=== PATIENT | female | born 1990 | race Caucasian/White ===

== ENCOUNTER → 2017-01-13 | Outpatient (CLI) | payer OTHER ==
[2017-01-13 19:57] LABS: THYROID STIMULATING HORMONE 0.482 uIu/ml (0.300-4.500)
== END | disposition home or self-care (01) ==
LOC: C.LABSPEC 13:58
PROVIDERS: ATTEND Family Medicine
DX: E03.9 Hypothyroidism, unspecified (principal)

== ENCOUNTER 2022-01-16 11:37 | Inpatient (IN) ==
[2022-01-16] MEDS ORDERED: OXYTOCIN 30 UNITS/500 ML BAG IV PRN (11:55)
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
[2022-01-16] MEDS: LACTATED RINGER'S 1,000 ML IV PRN ×2 (12:28→15:55)
[2022-01-16] MEDS ORDERED: fentaNYL citrate 100 MCG/2 ML VIAL ONE (12:38)
[2022-01-16] MEDS ORDERED: BUPIVACAINE 0.25% 30 ML VIAL ONE (12:38)
[2022-01-16] MEDS ORDERED: ePHEDrine sulfate 50 MG/ML AMP ONE (12:38)
[2022-01-16] MEDS ORDERED: SODIUM CHLORIDE 0.9% INJ 10 ML VIAL ONE (12:38)
[2022-01-16] MEDS ORDERED: fentaNYL 2MCG/ML ROPIVACAINE 1.25MG/ML 100 ML BAG EPI ONE (12:39)
[2022-01-16 12:41] LABS: Hematocrit (blood only) 36.4 % (37-47); Hemoglobin 12.5 g/dL (12.0-16.0); Mean Corpuscular Hemoglobin 31.8 pg (25-34); Mean Corpuscular Hgb Conc 34.3 g/dL (32-36); Mean Corpuscular Volume 92.6 fL (80-100); Mean Platelet Volume 10.9 fL (7.4-10.4); Platelet Count 258 K/uL (130-400); RDW Coefficient of Variation 13.1 % (11.5-14.5); Red Blood Count 3.93 M/uL (4.2-5.4); White Blood Count 19.65 K/uL (4.8-10.8)
[2022-01-16] MEDS ORDERED: NALOXONE HCL 1 MG in SODIUM CHLORIDE 0.9% 1000ML 1,000 ML IV PRN (12:58)
[2022-01-16] MEDS ORDERED: ePHEDrine sulfate 50 MG/ML AMP IV PRN (12:58)
[2022-01-16] MEDS ORDERED: NALBUPHINE HCL INJ 10 MG/ML AMP IV PRN (12:58)
[2022-01-16] MEDS ORDERED: NALOXONE HCL 0.4 MG/1 ML VIAL/CARP IV PRN (12:58)
[2022-01-16] MEDS ORDERED: fentaNYL 2MCG/ML ROPIVACAINE 1.25MG/ML 100 ML BAG EPI PRN (12:58)
[2022-01-16] MEDS ORDERED: diphenhydrAMINE 50 MG/ML VIAL IV PRN (12:58)
--- NOTE | 2022-01-16 13:00 | Anesthesiology Consultation ---
Date of Service January 16, 2022 Assessment & Plan (1) Encounter for pre-operative examination: Chart Review Chart Review: Patient NOT seen in Pre Admission Testing and Acceptable Risk for Labor Epidural Consults Requested none History Allergies Allergy/AdvReac Type Severity Reaction Status Date / Time Penicillins Allergy Mild Hives as a Verified 01/16/22 10:47 baby Medications Home Medications Medication Instructions Recorded Confirmed Last Taken bupropion HCl 100 mg tablet,12 hr 100 mg PO BID 06/25/21 01/16/22 01/16/22 10:30 sustained-release (Wellbutrin SR) cetirizine 10 mg capsule (Zyrtec) 10 mg PO DAILY 06/25/21 01/16/22 01/15/22 22:30 levothyroxine 112 mcg tablet 112 mcg PO DAILY #90 tab 07/12/21 01/16/22 01/16/22 07:00 Lactobacillus acidophilus 10 10,000 mmu cells PO DAILY 07/28/21 01/16/22 01/15/22 22:30 billion cell capsule (Probiotic) vit no.133-ferrous 1 tab PO DAILY 07/28/21 01/16/22 01/15/22 22:30 fumarate 28 mg-folic acid 800 mcg tablet () calcium 600 mg capsule 600 mg PO DAILY 01/16/22 01/16/22 01/15/22 22:30 Active Medications Generic Name Dose Route Start Last Admin Trade Name Freq PRN Reason Stop Dose Admin Lactated Ringer's 1,000 mls @ 125 mls/hr 01/16/22 11:55 01/16/22 12:28 Lr IV 01/18/22 11:54 999 mls/hr .Q8H PRN Administration L&D Protocol Protocol Past Medical History Medical History Cervical malignancy History of chicken pox Exercise / Class Metabolic Activity II 4-5 Yardwork/Stairs/Walk up hill Past Family History Family History Brother Heart valve disorder Denies family history of Ovarian cancer Prostate cancer Breast cancer Colorectal cancer Past Surgical History Surgical History H/O dilation and curettage 2014 H/O LEEP H/O nasal septoplasty 2003 History of rhinoplasty 2018 [place] teeth removed 2003 Past Anesthesia History No Hx of Anesthesia Complications and No Family Hx of Anesthesia Complications Social History Smoking Status: Never smoker Hx Alcohol Use: No Hx Substance Use: No Physical Exam Vital Signs Last Vital Signs Temp 38.0 C H 01/16/22 11:46 Pulse 109 H 01/16/22 13:20 Resp 22 01/16/22 11:46 BP 141/90 H 01/16/22 13:20 Pulse Ox 98 01/16/22 13:18 Testing Laboratory Results 01/16/22 12:23 01/16/22 12:23
[2022-01-16 13:01] LABS: Alanine Aminotransferase 10 U/L (7-52); Albumin Level 3.5 gm/dl (3.4-5.0); Alkaline Phosphatase 143 U/L (34-104); Anion Gap 11 (3-11); Aspartate Aminotransferase 12 U/L (13-39); BUN Creatinine Ratio 11.3 (10-20); Bilirubin Direct 0.1 mg/dl (0-0.2); Bilirubin,Total 0.9 mg/dl (0.2-1.0); Blood Urea Nitrogen 7 mg/dl (6-23); Calcium 9.7 mg/dl (8.5-10.1); Carbon Dioxide 20 mmol/L (21-32); Chloride 104 mmol/L (98-107); Est GFR (African American) 138.3 ml/min; Est GFR (Non-African American) 119.3 ml/min; Globulin 3.5 gm/dl (2.5-4.0); Glucose 92 mg/dl (70-99(Fasting)); Potassium 3.8 mmol/L (3.5-5.1); Sodium 135 mmol/L (136-145)
[2022-01-16] MEDS: cefOXitin 2,000 MG in DEXTROSE 5% 50 ML IV SCH ×2 (13:32→18:35)
--- NOTE | 2022-01-16 13:39 | Labor Progress Brief Note ---
Date of Service January 16, 2022 Patient now has epidural labs reviewed she does not have any signs of gestational hypertension and her blood pressures have improved her temperature elevation was 1 time however if there is a prolonged rupture of membrane going on it seems prudent to treat for potential chorioamnionitis On exam after epidural she is 5 cm however I feel a bulging bag no amniotic fluid is noted at this time so if she has a leak it would be a higher leak I discussed this with the patient regardless she has 5 cm antibiotics being given for possible cardio but also for unknown GBS status this was just drawn today. Once antibiotics are on board at some stage and may rupture membranes however like to give them time to get on board first. Assessment & Plan Admission and Anticipated Discharge Date Admission Date: January 16, 2022 Results & Data ([facility]) Vital Signs (Past 12 Hours) Vital Signs Temp Pulse Resp BP Pulse Ox 01/16/22 13:36 130/80 01/16/22 13:34 110 H 134/80 01/16/22 13:33 117 H 99 01/16/22 13:32 110 H 128/78 01/16/22 13:30 103 H 124/76 01/16/22 13:28 113 H 129/78 98 01/16/22 13:26 107 H 129/76 01/16/22 13:24 101 H 126/77 01/16/22 13:23 105 H 98 01/16/22 13:22 107 H 141/82 H 01/16/22 13:20 109 H 141/90 H 01/16/22 13:18 102 H 98 01/16/22 13:13 107 H 98 01/16/22 13:12 114 H 93 01/16/22 13:08 103 H 100 01/16/22 13:06 98 H 92 01/16/22 13:04 82 138/93 01/16/22 13:03 99 H 100 01/16/22 12:58 106 H 100 01/16/22 12:35 112 H 136/93 01/16/22 12:19 100 H 167/73 H 01/16/22 12:06 109 H 165/92 H 01/16/22 11:47 117 H 161/90 H 01/16/22 11:46 100.4 F H 22 Coding Level of Care Code None
--- NOTE | 2022-01-16 14:38 | Labor Progress Brief Note ---
Date of Service January 16, 2022 Update I did review whether cefoxitin was sufficient antibiotics I spoke with Dr. Araujo in the office and our pediatrics on-call and wondered if we should add anything additional to the cefoxitin as I am choosing this is treatment for chorioamnionitis although it is not standard GBS treatment. Discussed with Dr. Goel she feels that the baby likely will need antibiotics afterwards and this will be sufficient treatment in labor we decided not to add on any additional antibiotics Assessment & Plan Admission and Anticipated Discharge Date Admission Date: January 16, 2022 Results & Data ([facility]) Vital Signs (Past 12 Hours) Vital Signs Temp Pulse Resp BP Pulse Ox 01/16/22 14:33 96 H 124/65 100 01/16/22 14:28 97 H 100 01/16/22 14:23 115 H 94 01/16/22 14:18 132 H 144/73 H 56 L 01/16/22 14:13 122 H 94 01/16/22 14:12 117 H 85 L 01/16/22 14:08 110 H 100 01/16/22 14:07 108 H 90 01/16/22 14:03 107 H 122/78 100 01/16/22 13:58 112 H 143/83 H 100 01/16/22 13:53 118 H 125/79 92 01/16/22 13:51 118 H 91 01/16/22 13:48 104 H 100 01/16/22 13:47 111 H 20 122/75 01/16/22 13:43 107 H 99 01/16/22 13:42 109 H 118/73 01/16/22 13:38 137 H 88 L 01/16/22 13:36 104 H 130/80 01/16/22 13:34 110 H 134/80 01/16/22 13:33 117 H 99 01/16/22 13:32 110 H 128/78 01/16/22 13:30 103 H 124/76 01/16/22 13:28 113 H 129/78 98 01/16/22 13:26 107 H 129/76 01/16/22 13:24 101 H 126/77 01/16/22 13:23 105 H 98 01/16/22 13:22 107 H 141/82 H 01/16/22 13:20 109 H 141/90 H 01/16/22 13:18 102 H 98 01/16/22 13:13 107 H 98 01/16/22 13:12 114 H 93 01/16/22 13:08 103 H 100 01/16/22 13:06 98 H 92 01/16/22 13:04 82 138/93 01/16/22 13:03 99 H 100 01/16/22 13:00 99.9 F H 01/16/22 12:58 106 H 100 01/16/22 12:35 112 H 136/93 01/16/22 12:19 100 H 167/73 H 01/16/22 12:06 109 H 165/92 H 01/16/22 11:47 117 H 161/90 H 01/16/22 11:46 100.4 F H 22 Coding Level of Care Code None
--- NOTE | 2022-01-16 15:43 | Labor Progress Brief Note ---
Date of Service January 16, 2022 Patient has had some decelerations some of them post contraction did reassess the situation her cervix is 5 to 6 cm and the membranes are bulging intensely. Antibiotics are on board I decided we would do an AmniSure and interestingly enough the AmniSure is negative. At this stage with the decelerations and the fact that she is almost 6 I recommended rupture of membranes and she agrees membranes were ruptured for clear fluid albeit somewhat of a foul odor. My suspicion is 1 of 2 things have gone on she has either had polyhydramnios and which is led to some early dilation of the cervix in labor and that she has had transudation of bacteria through the membranes possibly resulting in chorioamnionitis I am aware there was a fair amount of fluid in the office on exam and it was nitrazine positive but nitrazine is many false positives so I am inclined more to believe that the patient has not been ruptured for 6 days. This was relayed to the patient I will relay to the pediatricians as well Regardless she has choreal and needed nidus and needs to be treated this such both during labor and after delivery. Clearly need to watch her tracing as well and make sure it does not worsen Assessment & Plan Admission and Anticipated Discharge Date Admission Date: January 16, 2022 Results & Data ([facility]) Vital Signs (Past 12 Hours) Vital Signs Temp Pulse Resp BP Pulse Ox 01/16/22 15:38 100 H 98 01/16/22 15:35 117 H 92 01/16/22 15:33 106 H 100 01/16/22 15:29 108 H 94 01/16/22 15:28 115 H 85 L 01/16/22 15:24 96 H 89 L 01/16/22 15:23 100 H 100 01/16/22 15:18 95 H 126/80 98 01/16/22 15:13 95 H 100 01/16/22 15:08 119 H 70 L 01/16/22 15:07 113 H 92 01/16/22 15:03 112 H 90 01/16/22 15:02 117 H 92 01/16/22 15:00 98.2 F 01/16/22 14:58 101 H 100 01/16/22 14:56 103 H 89 L 01/16/22 14:53 97 H 100 01/16/22 14:48 96 H 117/63 100 01/16/22 14:43 100 H 100 01/16/22 14:38 98 H 100 01/16/22 14:33 96 H 124/65 100 01/16/22 14:28 97 H 100 01/16/22 14:23 115 H 94 01/16/22 14:18 132 H 144/73 H 56 L 01/16/22 14:13 122 H 94 01/16/22 14:12 117 H 85 L 01/16/22 14:08 110 H 100 01/16/22 14:07 108 H 90 01/16/22 14:03 107 H 122/78 100 01/16/22 13:58 112 H 143/83 H 100 01/16/22 13:53 118 H 125/79 92 01/16/22 13:51 118 H 91 01/16/22 13:48 104 H 100 01/16/22 13:47 111 H 20 122/75 01/16/22 13:43 107 H 99 01/16/22 13:42 109 H 118/73 01/16/22 13:38 137 H 88 L 01/16/22 13:36 104 H 130/80 01/16/22 13:34 110 H 134/80 01/16/22 13:33 117 H 99 01/16/22 13:32 110 H 128/78 01/16/22 13:30 103 H 124/76 01/16/22 13:28 113 H 129/78 98 01/16/22 13:26 107 H 129/76 01/16/22 13:24 101 H 126/77 01/16/22 13:23 105 H 98 01/16/22 13:22 107 H 141/82 H 01/16/22 13:20 109 H 141/90 H 01/16/22 13:18 102 H 98 01/16/22 13:13 107 H 98 01/16/22 13:12 114 H 93 01/16/22 13:08 103 H 100 01/16/22 13:06 98 H 92 01/16/22 13:04 82 138/93 01/16/22 13:03 99 H 100 01/16/22 13:00 99.9 F H 01/16/22 12:58 106 H 100 01/16/22 12:35 112 H 136/93 01/16/22 12:19 100 H 167/73 H 01/16/22 12:06 109 H 165/92 H 01/16/22 11:47 117 H 161/90 H 01/16/22 11:46 100.4 F H 22 Coding Level of Care Code None
[2022-01-16] MEDS: CALCIUM CARBONATE 500 MG CHEWABLE TAB PO PRN ×2 (17:08→22:22)
[2022-01-16] MEDS ORDERED: ACETAMINOPHEN 325 MG TAB PO PRN (22:23)
--- NOTE | 2022-01-16 23:36 | Delivery Summary ---
Vaginal Delivery Summary Date of Service January 16, 2022 Vaginal Delivery Summary VAVD Vacuum-assisted vaginal delivery Clinical note the patient was started have chorion amnionitis and was pushing reasonably well however her heart rate continued to rise was into the 180s at this stage she had brought down to a +2 station and I offered vacuum assistance to shorten the second stage patient agreed discussed risks including risks of careful hematoma Bladder was drained vacuum was applied for a total of 1 contraction there was 1 pop-off she then delivered without vacuum after pushing for 2 more contractions delivering a baby in occiput anterior position small midline episiotomy was made as well to facilitate delivery mouth and then nares were suctioned there was no nuchal cord baby was delivered by gentle traction no excessive force live vigorous male infant cord clamped and cut cord gases obtained cord blood obtained placenta her removed with gentle traction IV Pitocin started small episiotomy repaired with 3-0 Vicryl sponge and instrument counts correct Estimated blood loss 200 mL There was a foul odor at the time of discharge consistent with cardio in the placenta We will plan on continue antibiotics for 24 hours afterwards [facility] Vaginal Delivery Charge Delivery Type Details: VAVD
[2022-01-17 00:04] LABS: Base Excess Cord Arterial Bld -1.9 mEq/L (-9-1.8); Base Excess Cord Venous Blood 0.7 mEq/L (-7.7-1.9); CO2 Cord Arterial Blood 58 mmHg (39.1-73.5); Cord Venous Blood HCO3 24 mmol/L (18.4-26.8); Cord Venous Blood PCO2 37 mmHg (30.4-57.2); Cord Venous Blood PO2 36 mmHg (14.1-43.3); Cord Venous Blood pH 7.44 (7.20-7.44); HCO3 Cord Arterial Blood 26 mmol/L (19.7-28.5); PO2 Cord Arterial Blood 20 mmHg (4.1-31.7); pH Cord Arterial Blood 7.27 (7.1-7.38)
[2022-01-17 00:07] LABS: Oxygen Sat Cord Arterial Blood < 60.0 % (<60)
[2022-01-17] MEDS ORDERED: BENZOCAINE 20% AER SPR 82.5 GM CAN EXT PRN (02:17)
[2022-01-17] MEDS ORDERED: OXYTOCIN 30 UNITS/500 ML BAG IV PRN (02:17)
[2022-01-17] MEDS ORDERED: HYDROCORTISONE ACETATE 25 MG SUPP PR PRN (02:17)
[2022-01-17] MEDS ORDERED: DIPHTHERIA/TETANUS/PERTUSSIS 0.5 ML SYR/VIAL IM ONE (02:17)
[2022-01-17] MEDS ORDERED: oxyCODONE/ACETAMINOPHEN 5mg/325mg TAB PO PRN (02:17)
[2022-01-17] MEDS ORDERED: bisacodyL 10 MG SUPP PR PRN (02:17)
[2022-01-17] MEDS ORDERED: ACETAMINOPHEN 325 MG TAB PO PRN (02:17)
[2022-01-17] MEDS: IBUPROFEN 600 MG TAB PO PRN ×4 (02:25→20:35)
[2022-01-17] MEDS: LEVOTHYROXINE SODIUM 112 MCG TABLET PO SCH (06:15)
[2022-01-17] MEDS: cefOXitin 2,000 MG in DEXTROSE 5% 50 ML IV SCH ×3 (06:20→13:50)
--- NOTE | 2022-01-17 06:49 | Obstetrical Progress Note ---
Date of Service <Phillip Gamboa DO - Last Filed: 01/17/22 07:20> January 17, 2022 Assessment & Plan <Phillip Gamboa DO - Last Filed: 01/17/22 07:20> (1) Encounter for care and examination after delivery: 31 yo post day 1 from vaginal delivery complicated by sepsis, doing well. -Continue routine post care. -vital signs reviewed and WNL. (Tmax 36.7 post delivery) -Blood type O+, GBS unknown, Rubella Immune. -Encourage ambulation, monitor and control pain with Motrin, tylenol PRN, resume regular diet, monitor lochia. -encourage breast feeding. -Patient feeling much better today. Suspect resolution of source of sepsis with products of conception removed. -Will stop antibiotics after 24 hours. <Kunal Nguyen MD, FACOG - Last Filed: 01/17/22 07:22> (1) Encounter for care and examination after delivery: Subjective <Phillip Sanchezpiotrmichaela - Last Filed: 01/17/22 07:20> Ambulation: ambulating normally Voiding: no voiding problems Passing Gas:: Yes Diet Tolerance:: regular diet Lochia:: Small Feeding Type:: breast feeding Current Pain Level(1-10): 0 Review of Systems Denies fever, chills, sweats Denies shortness of breath, difficulty breathing, chest pain, palpitations, chest pressure. Denies breast pain. Denies dysuria. Denies headache or changes in vision Physical Exam <Phillip Sanchezpiotrmichaela - Last Filed: 01/17/22 07:20> General: Alert, oriented. No acute distress. Cardiac: Regular rate and rhythm, no murmurs/rubs/gallops. Respiratory: Clear to auscultation bilaterally a/p, no wheezes/rales/rhonchi. No increased work of breathing. Symmetrical chest rise. No respiratory distress. Abdomen: Soft, nontender, nondistended. Bowel sounds present. Uterus: Uterine fundus firm, palpable 1 cm below umbilicus. Lower Extremities: No lower extremity edema or swelling. No deep calf pain. Deb's negative bilaterally Results & Data ([facility]) <Phillip Sanchezpiotrmichaela DO - Last Filed: 01/17/22 07:20> Vital Signs (Past 12 Hours) Vital Signs Temp Pulse Pulse Resp BP BP Pulse Ox 01/17/22 03:00 36.5 C 94 H 16 133/78 98 01/17/22 02:20 36.7 C 20 01/17/22 02:18 90 144/87 H 01/17/22 02:03 100 H 122/79 01/17/22 01:50 22 01/17/22 01:48 93 H 121/69 01/17/22 01:33 89 123/75 01/17/22 01:20 20 01/17/22 01:18 88 133/81 01/17/22 01:05 22 01/17/22 01:03 96 H 137/81 01/17/22 00:48 86 122/71 01/17/22 00:45 98 H 97 01/17/22 00:40 103 H 95 01/17/22 00:35 101 H 20 97 01/17/22 00:33 100 H 125/70 01/17/22 00:30 97 H 95 01/17/22 00:25 96 H 97 01/17/22 00:20 97 H 20 97 01/17/22 00:18 93 H 123/62 01/17/22 00:15 96 H 97 01/17/22 00:10 97 H 97 01/17/22 00:05 101 H 18 94 01/17/22 00:03 96 H 133/76 01/17/22 00:00 97 H 97 01/16/22 23:55 96 H 96 01/16/22 23:50 96 H 20 96 01/16/22 23:48 139 H 129/78 90 01/16/22 23:45 94 H 97 01/16/22 23:40 107 H 97 01/16/22 23:35 38.1 C H 110 H 20 96 01/16/22 23:33 106 H 137/80 01/16/22 23:30 105 H 93 01/16/22 23:25 104 H 94 01/16/22 23:24 102 H 94 01/16/22 23:20 106 H 95 01/16/22 23:18 108 H 134/85 01/16/22 23:15 152 H 94 01/16/22 23:11 122 H 94 01/16/22 23:10 130 H 95 01/16/22 23:05 106 H 99 01/16/22 23:03 110 H 130/86 01/16/22 23:00 135 H 99 01/16/22 22:55 112 H 96 01/16/22 22:50 128 H 95 01/16/22 22:48 127 H 162/70 H 01/16/22 22:45 110 H 92 01/16/22 22:39 108 H 95 01/16/22 22:38 104 H 94 01/16/22 22:34 105 H 137/81 95 01/16/22 22:29 113 H 96 01/16/22 22:28 113 H 94 01/16/22 22:24 111 H 94 01/16/22 22:19 105 H 95 01/16/22 22:18 107 H 145/76 H 01/16/22 22:16 117 H 94 01/16/22 22:14 105 H 96 01/16/22 22:09 121 H 86 L 01/16/22 22:04 122 H 97 01/16/22 22:03 106 H 163/84 H 01/16/22 22:01 113 H 87 L 01/16/22 21:59 38.1 C H 103 H 20 97 01/16/22 21:54 143 H 97 01/16/22 21:52 105 H 90 01/16/22 21:49 112 H 98 01/16/22 21:48 107 H 162/87 H 01/16/22 21:44 105 H 97 01/16/22 21:39 109 H 98 01/16/22 21:34 107 H 99 01/16/22 21:33 105 H 153/80 H 87 L 01/16/22 21:29 97 H 98 01/16/22 21:24 94 H 95 01/16/22 21:20 96 H 124/67 01/16/22 21:19 93 H 95 01/16/22 21:14 91 H 96 01/16/22 21:09 92 H 96 01/16/22 21:04 91 H 134/69 98 01/16/22 21:00 37.9 C H 18 01/16/22 20:59 90 98 01/16/22 20:57 100 H 91 01/16/22 20:54 92 H 96 01/16/22 20:49 87 97 05/11/22 20:48 88 133/76 01/16/22 20:44 92 H 100 01/16/22 20:39 96 H 89 L 01/16/22 20:34 102 H 133/90 79 L 01/16/22 20:33 111 H 94 01/16/22 20:29 90 97 01/16/22 20:24 87 97 01/16/22 20:19 88 97 01/16/22 20:18 86 137/68 01/16/22 20:14 94 H 99 01/16/22 20:09 90 99 01/16/22 20:04 104 H 142/88 H 98 01/16/22 20:00 93 H 92 01/16/22 19:59 97 H 100 01/16/22 19:54 91 H 100 01/16/22 19:50 95 H 90 01/16/22 19:49 99 H 143/91 H 99 01/16/22 19:44 91 H 96 01/16/22 19:39 89 97 01/16/22 19:34 89 132/83 95 01/16/22 19:29 90 98 01/16/22 19:24 86 99 01/16/22 19:19 92 H 99 01/16/22 19:18 88 145/85 H 01/16/22 19:14 86 98 01/16/22 19:11 105 H 91 01/16/22 19:09 93 H 99 01/16/22 19:05 91 H 93 01/16/22 19:04 96 H 135/82 93 01/16/22 19:00 38.1 C H 83 20 91 01/16/22 18:59 86 100 01/16/22 18:54 90 92 01/16/22 18:49 91 H 125/82 100 01/16/22 18:48 92 H 90 <Kunal Nguyen MD, FACOG - Last Filed: 01/17/22 07:22> Co-Signing Physician Notes Resident Physician Supervision Note: I was present with Dr. Gamboa during the history and exam. I discussed the case with the resident and agree with the findings and plan as documented in the note. Any exceptions or clarifications are listed here: [None] Documented By: Kunal Nguyen MD, FACOG Resident Activity Tracking <Phillip Gamboa DO - Last Filed: 01/17/22 07:20> Resident Involvement: Resident Care Provided Care Provided: OB Delivery
[2022-01-17 06:55] LABS: Hemoglobin 11.6 g/dL (12.0-16.0); Mean Corpuscular Hemoglobin 31.7 pg (25-34); Mean Corpuscular Hgb Conc 34.1 g/dL (32-36); Mean Corpuscular Volume 92.9 fL (80-100); Mean Platelet Volume 10.9 fL (7.4-10.4); Platelet Count 190 K/uL (130-400); RDW Coefficient of Variation 13.1 % (11.5-14.5); RDW Standard Deviation 44.5 fL (36.4-46.3); Red Blood Count 3.66 M/uL (4.2-5.4); White Blood Count 20.78 K/uL (4.8-10.8)
--- NOTE | 2022-01-17 08:59 | Anesthesia Procedure Note ---
Date of Service January 17, 2022 Anesthesia Post Epidural Note Vital Signs Vital Signs: Temp Pulse Resp BP Pulse Ox 97.5 F L 82 18 120/77 98 01/17/22 07:04 01/17/22 07:04 01/17/22 07:04 01/17/22 07:04 01/17/22 07:04 Pain Intensity Bilateral Abdomen: Pain Intensity: 4 Episiotomy/Laceration: Pain Intensity: 4 Notes Mental Status: alert / awake / arousable and participated in evaluation Nausea / Vomiting: adequately controlled Pain: adequately controlled Airway Patency, RR, SpO2: stable & adequate BP & HR: stable & adequate Hydration State: stable & adequate Neuraxial Anesthesia: was administered and sensory block is resolving Anesthetic Complications: no major complications apparent and Pt Satisfied with anesthetic care Epidural: Removed without complications and With tip intact
[2022-01-17] MEDS: CALCIUM 600MG + VIT D 400 IU TAB PO SCH (09:02)
[2022-01-17] MEDS: buPROPion SR 100 MG TABCR PO SCH ×2 (09:02→20:34)
[2022-01-17] MEDS: DOCUSATE SODIUM 100 MG CAP PO SCH ×2 (09:02→20:34)
[2022-01-17] MEDS: PRENATAL VITAMIN 1 TAB PO SCH (09:02)
[2022-01-17] MEDS: CETIRIZINE HCL 10 MG TABLET PO SCH (09:02)
[2022-01-17] MEDS ORDERED: bisacodyL 5 MG TABEC PO SCH (20:00)
[2022-01-18] MEDS: IBUPROFEN 600 MG TAB PO PRN ×3 (03:59→16:11)
--- NOTE | 2022-01-18 05:20 | Obstetrical Progress Note ---
Date of Service <Phillip Gamboa DO - Last Filed: 01/18/22 07:07> January 18, 2022 Assessment & Plan <Phillip Gamboa DO - Last Filed: 01/18/22 07:07> (1) Encounter for care and examination after delivery: 31 yo post day 2 from vaginal delivery complicated by chorioamnionitis, doing well. -Continue routine post care. -vital signs reviewed and WNL. (Tmax 36.7 post delivery) -Blood type O+, GBS unknown, Rubella Immune. -Encourage ambulation, monitor and control pain with Motrin, tylenol PRN, resume regular diet, monitor lochia. -encourage breast feeding. -Patient feeling much better post . -Received Cefoxitin for 24 hours. -Discussed discharge with patient, patient will follow up with Dr. Nguyen in 6 weeks. -Discharge pending peds, may be held here until tomorrow. <Nereida Araujo MD - Last Filed: 01/18/22 07:24> (1) Encounter for care and examination after delivery: Subjective <Phillip Gamboa - Last Filed: 01/18/22 07:07> Ambulation: ambulating normally Voiding: no voiding problems Passing Gas:: Yes Diet Tolerance:: regular diet Lochia:: Small Feeding Type:: breast feeding Current Pain Level(1-10): 0 Review of Systems Denies fever, chills, sweats Denies shortness of breath, difficulty breathing, chest pain, palpitations, chest pressure. Denies breast pain. Denies dysuria. Denies headache or changes in vision Physical Exam <Phillip Gamboa DO - Last Filed: 01/18/22 07:07> General: Alert, oriented. No acute distress. Cardiac: Regular rate and rhythm, no murmurs/rubs/gallops. Respiratory: Clear to auscultation bilaterally a/p, no wheezes/rales/rhonchi. No increased work of breathing. Symmetrical chest rise. No respiratory distress. Abdomen: Soft, nontender, nondistended. Bowel sounds present. Uterus: Uterine fundus firm, palpable 2 cm below umbilicus. Lower Extremities: No deep calf pain. Results & Data ([facility]) <Phillip Gamboa DO - Last Filed: 01/18/22 07:07> Vital Signs (Past 12 Hours) Vital Signs Temp Pulse Resp BP BP Pulse Ox 01/17/22 22:58 36.5 C 66 16 100/51 L 100 01/17/22 20:30 36.7 C 83 16 128/83 97 01/17/22 19:04 36.7 C 66 16 123/80 99 <Nereida Araujo MD - Last Filed: 01/18/22 07:24> Co-Signing Physician Notes Resident Physician Supervision Note: I interviewed and examined the patient. Discussed with Dr. Gamboa and agree with findings and plan as documented in the note. Any exceptions or clarifications are listed here: [ ] Documented By: Nereida Araujo MD, FACOG Resident Activity Tracking <Phillip Gamboa DO - Last Filed: 01/18/22 07:07> Resident Involvement: Resident Care Provided Care Provided: OB Delivery
[2022-01-18] MEDS: LEVOTHYROXINE SODIUM 112 MCG TABLET PO SCH (06:06)
[2022-01-18 07:08] LABS: Hematocrit (blood only) 33.5 % (37-47); Hemoglobin 11.1 g/dL (12.0-16.0)
[2022-01-18] MEDS: CETIRIZINE HCL 10 MG TABLET PO SCH (08:13)
[2022-01-18] MEDS: DOCUSATE SODIUM 100 MG CAP PO SCH (08:13)
[2022-01-18] MEDS: CALCIUM 600MG + VIT D 400 IU TAB PO SCH (08:13)
[2022-01-18] MEDS: buPROPion SR 100 MG TABCR PO SCH (08:13)
[2022-01-18] MEDS: PRENATAL VITAMIN 1 TAB PO SCH (08:13)
--- NOTE | 2022-01-21 07:50 | Discharge Summary ---
Date of Service January 21, 2022 Discharge Data Consultations 01/16/22 11:55 Consult Anesthesiology Stat Hospital Course (1) Encounter for care and examination after delivery: 31 yo post day 2 from vaginal delivery complicated by chorioamnionitis, doing well. -Continue routine post care. -vital signs reviewed and WNL. (Tmax 36.7 post delivery) -Blood type O+, GBS unknown, Rubella Immune. -Encourage ambulation, monitor and control pain with Motrin, tylenol PRN, resume regular diet, monitor lochia. -encourage breast feeding. -Patient feeling much better post . -Received Cefoxitin for 24 hours. -Discussed discharge with patient, patient will follow up with Dr. Nguyen in 6 weeks. -Discharge pending peds, may be held here until tomorrow. Coding Level of Care Code None Diagnoses Encounter for care and examination after delivery Z39.2
== END 2022-01-18 18:40 | disposition home or self-care (01) | DRG 805 ==
LOC: OPB 11:37 → 4S1 11:41 → 4E1 01-17 02:45

== ENCOUNTER 2023-10-27 05:18 | Inpatient (IN) ==
--- NOTE | 2023-10-23 10:42 | Anesthesiology Consultation ---
Date of Service October 23, 2023 Assessment & Plan (1) Encounter for pre-operative examination: Infectious disease screening: Per assessment on 10/23/23: No known infectious disease contacts or current infectious disease symptoms. No noted recent Covid positive test result. 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 History Surgery Operation Date: 10/27/23 07:30 Proposed Procedures p Section (Delivery of Baby Through Abdominal Incision) - Nereida Araujo MD Height/Weight Height: 5 ft 4 in Weight: 98.43 kg Allergies Allergy/AdvReac Type Severity Reaction Status Date / Time nickel Allergy Intermediate Rash Verified 10/23/23 10:01 Penicillins Allergy Mild Hives as a Verified 10/23/23 09:47 baby Medications Home Medications Medication Instructions Recorded Confirmed Last Taken cetirizine 10 mg capsule (Zyrtec) 10 mg PO DAILY 06/25/21 10/23/23 01/15/22 22:30 Lactobacillus acidophilus 10 10,000 mmu cells PO HS 07/28/21 10/23/23 01/15/22 22:30 billion cell capsule (Probiotic) vit no.133-ferrous 1 tab PO HS 07/28/21 10/23/23 01/15/22 22:30 fumarate 28 mg-folic acid 800 mcg tablet () calcium 600 mg capsule 600 mg PO DAILY 01/16/22 10/23/23 01/15/22 22:30 ferrous sulfate 1 dose PO HS 03/14/23 10/23/23 Unknown levothyroxine 112 mcg capsule 112 mcg PO QAM 03/14/23 10/23/23 Unknown magnesium 400 mg PO HS 03/14/23 10/23/23 Unknown progesterone micronized 200 mg 200 mg vaginal QPM 90 days #90 caps 05/13/23 10/23/23 Unknown capsule (Prometrium) famotidine 20 mg tablet 20 mg PO HS 10/23/23 10/23/23 Unknown Past Medical History Medical History Asthma Allergy induced/well controlled per patient, no inhalers 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" GERD (gastroesophageal reflux disease) -induced Sabas's disease History of chicken pox childhood History of COVID-19 08/2020 PROM (premature rupture of membranes) 1st Past Family History Family History Brother Heart valve disorder Denies family history of Ovarian cancer Prostate cancer Breast cancer Colorectal cancer Past Surgical History Surgical History H/O dilation and curettage 2014 H/O LEEP H/O nasal septoplasty 2003 History of rhinoplasty 2018 S/P cone biopsy of cervix cold knife cone of cervix 2012 for CIS [place] teeth removed 2002 Social History Smoking Status: Former smoker Do You Dip or Chew Tobacco: No Smoking End Date: Age 20s, "light use" Hx Alcohol Use: No Hx Substance Use: No substance use type: does not use
[2023-10-27] MEDS ORDERED: OXYTOCIN 30 UNITS/NSS 30 UNITS/500 ML BAG IV PRN ×2 (05:52→05:55)
[2023-10-27] MEDS ORDERED: LIDOCAINE 1% LOCAL 20 ML VIAL INFIL PRN (05:52)
--- NOTE | 2023-10-27 05:56 | History & Physical Report ---
Date of Service October 27, 2023 Assessment & Plan (1) Normal labor: Plan: IUP at 39 0/7 weeks who was to have primary LTCS for breech presentation who is now vertex by ultrasound and cervix exam and in early labor. she would like to stay for IOL now and as she is already 4 cms dilated may progress on her own with just AROM. pitocin augmentation if necessary. planning on epidural analgesia anticipate vaginal Admission and Anticipated Discharge Date Admission Date: October 27, 2023 History of Present Illness Primary Care Provider: Mg Henry DO Patient is a 33 yo EDC [birth year] who presents at 39 0/7 weeks for primary LTCS but has found to be vertex by ultrasound this morning. she originally planned on going home and waiting for labor to start, however she has been bernardo more regularly this morning and now wishes to stay for IOL. no bloody show or SPROM. complicated by prior late delivery and prior cervical cone biopsy. she has been on vaginal progesterone this . GBS-negative Allergies Allergy/AdvReac Type Severity Reaction Status Date / Time nickel Allergy Intermediate Rash Verified 10/27/23 05:55 Penicillins Allergy Mild Hives as a Verified 10/27/23 05:55 baby chlorhexidine Allergy Hives Verified 10/27/23 05:56 Home Medications Medication Instructions Recorded Confirmed Type cetirizine 10 mg capsule (Zyrtec) 10 mg PO DAILY 06/25/21 10/27/23 History Lactobacillus acidophilus 10 10,000 mmu cells PO HS 07/28/21 10/27/23 History billion cell capsule (Probiotic) vit no.133-ferrous 1 tab PO HS 07/28/21 10/27/23 History fumarate 28 mg-folic acid 800 mcg tablet () calcium 600 mg capsule 600 mg PO DAILY 01/16/22 10/27/23 History levothyroxine 112 mcg capsule 112 mcg PO QAM 03/14/23 10/27/23 History famotidine 20 mg tablet 20 mg PO HS 10/23/23 10/27/23 History ferrous sulfate 325 mg (65 mg 325 mg PO DAILY 10/27/23 10/27/23 History iron) tablet (Iron (ferrous sulfate)) magnesium 200 mg tablet 400 mg PO DAILY 10/27/23 10/27/23 History sertraline 100 mg tablet (Zoloft) 100 mg PO DAILY 10/27/23 10/27/23 History Patient History Medical History Asthma Allergy induced/well controlled per patient, no inhalers 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" GERD (gastroesophageal reflux disease) -induced Sabas's disease History of chicken pox childhood History of COVID-19 08/2020 PROM (premature rupture of membranes) 1st Surgical History H/O dilation and curettage 2014 H/O LEEP H/O nasal septoplasty 2002 History of rhinoplasty 2018 S/P cone biopsy of cervix cold knife cone of cervix 2012 for CIS [place] teeth removed 2002 Family History Brother Heart valve disorder Denies family history of Ovarian cancer Prostate cancer Breast cancer Colorectal cancer Social History Smoking Status: Former smoker Smoking End Date: Age 20s, "light use"; Second Hand Exposure: No; Do You Dip or Chew Tobacco: No; Tobacco Cessation Education Requested by Patient: No Hx Alcohol Use: No Hx Substance Use: No Preferred Language: [place] Communication Ability: Effective Visual Impairment: No Limitations Hearing Ability: Normal Video Production Specialist Required: No Beliefs That Will Affect Care: None marital status: Single marital status details: Darek Dubose [phone] Current Living Situation: Significant Other Current Living Situation Comment: lives with fiance, son, dogs, cat-fob changing litter current occupational status: employed current occupation: business process manager at [employer] Other Information That Helps Us Care for You: No Feels Safe at Home: Yes Safety Concerns: Feels Safe At This Time Assistive Devices: Contacts and Glasses Review of Systems All systems reviewed & are unremarkable except as noted in HPI & below Physical Exam Constitutional: WD/WN, vitals as above Psychiatric: A+Ox3, euthymic affect Genitourinary: OB Exam Abdomen: + vertex, + estimated weight (7-8 pounds) and + regular contractions (Q3-4 minutes mild) Manual OB Exam: + cervical dilation 4 cm, + cervical effacement 70% and + station (posterior) -2 OB Exam Monitor Tracing: + external FHT monitor used, + external uterine monitor used, + category I and + normal FHT variability Results & Data Vital Signs (Past 12 Hours) Vital Signs Pulse BP 10/27/23 05:33 75 132/80 Coding Level of Care Code None Diagnoses Normal labor O80; Z37.9
[2023-10-27] MEDS: LACTATED RINGER'S 1,000 ML IV PRN (06:08)
[2023-10-27] MEDS: LEVOTHYROXINE SODIUM 112 MCG TABLET PO SCH (06:18)
[2023-10-27 06:24] LABS: Hematocrit (blood only) 35.9 % (37.0-47.0); Hemoglobin 12.2 g/dl (12.0-16.0); Mean Corpuscular Hemoglobin 31.1 pg (25.0-34.0); Mean Corpuscular Volume 91.6 fL (80.0-100.0); Mean Platelet Volume 11.1 fL (9.4-12.4); Platelet Count 207 K/uL (130-400); RDW Coefficient of Variation 12.8 % (11.5-14.5); RDW Standard Deviation 42.7 fL (36.4-46.3); Red Blood Count 3.92 M/uL (4.20-5.40); White Blood Count 8.64 K/ul (4.8-10.8)
[2023-10-27] MEDS ORDERED: fentaNYL citrate PF 100 MCG/2 ML VIAL EPI STA (08:01)
[2023-10-27] MEDS ORDERED: LIDOCAINE 2% MPF LOCAL 5 ML VIAL EPI PRN (08:01)
[2023-10-27] MEDS ORDERED: diphenhydrAMINE 50 MG/ML VIAL IV PRN ×2 (08:01→13:26)
[2023-10-27] MEDS ORDERED: SODIUM CHLORIDE 0.9% PF INJ 10 ML VIAL EPI STA (08:01)
[2023-10-27] MEDS ORDERED: NALOXONE HCL 1 MG in SODIUM CHLORIDE 0.9% 1,000 ML IV PRN ×2 (08:01→13:26)
[2023-10-27] MEDS ORDERED: NALBUPHINE HCL 5 MG in SYRINGE 0 ML IV PRN ×2 (08:01→13:26)
[2023-10-27] MEDS ORDERED: BUPIVACAINE 0.25% PF 30 ML VIAL EPI PRN (08:01)
[2023-10-27] MEDS ORDERED: ePHEDrine sulfate 50 MG/ML AMP IV PRN ×2 (08:01→13:26)
[2023-10-27] MEDS ORDERED: SODIUM CHLORIDE 0.9% PF INJ 10 ML VIAL EPI PRN (08:01)
[2023-10-27] MEDS ORDERED: fentANYL 2 MCG/ML BUPIVacaine 0.125%-NSS 100ML BAG EPI PRN (08:01)
[2023-10-27] MEDS ORDERED: BUPIVACAINE 0.25% PF 30 ML VIAL EPI STA (08:01)
[2023-10-27] MEDS ORDERED: ONDANSETRON INJ 2 MG/ML 2 ML VIAL IV PRN (08:01)
[2023-10-27] MEDS ORDERED: NALOXONE HCL 0.4 MG/1 ML VIAL/CARP IV PRN ×2 (08:01→13:26)
[2023-10-27] MEDS ORDERED: ROPIVACAINE 0.5% PF 5 MG/ML 20 ML VIAL EPI PRN (08:01)
[2023-10-27] MEDS ORDERED: LIDOCAINE 2%/EPINEPHRINE 1:200,000 20 ML PF EPI STA (08:01)
[2023-10-27] MEDS ORDERED: fentaNYL citrate PF 100 MCG/2 ML VIAL EPI PRN (08:01)
--- NOTE | 2023-10-27 08:04 | Anesthesiology Consultation ---
Date of Service October 27, 2023 Assessment & Plan ASA ASA2 Proposed Anesthesia Anesthesia Type: General and Labor Epidural Risk / Benefits Reviewed With: PT / POA / Parent / Guardian, Accepts Plan and Informed Consent Obtained History Surgery Operation Date: 10/27/23 07:30 Proposed Procedures p Section (Delivery of Baby Through Abdominal Incision) - Nereida Araujo MD Height/Weight Height: 5 ft 4 in Weight: 98.43 kg Allergies Allergy/AdvReac Type Severity Reaction Status Date / Time nickel Allergy Intermediate Rash Verified 10/27/23 05:55 Penicillins Allergy Mild Hives as a Verified 10/27/23 05:55 baby chlorhexidine Allergy Hives Verified 10/27/23 05:56 Medications Home Medications Medication Instructions Recorded Confirmed Last Taken cetirizine 10 mg capsule (Zyrtec) 10 mg PO DAILY 06/25/21 10/27/23 10/26/23 Lactobacillus acidophilus 10 10,000 mmu cells PO HS 07/28/21 10/27/23 10/26/23 billion cell capsule (Probiotic) vit no.133-ferrous 1 tab PO HS 07/28/21 10/27/23 10/26/23 fumarate 28 mg-folic acid 800 mcg tablet () calcium 600 mg capsule 600 mg PO DAILY 01/16/22 10/27/23 10/26/23 levothyroxine 112 mcg capsule 112 mcg PO QAM 03/14/23 10/27/23 10/26/23 famotidine 20 mg tablet 20 mg PO HS 10/23/23 10/27/23 10/26/23 ferrous sulfate 325 mg (65 mg 325 mg PO DAILY 10/27/23 10/27/23 10/26/23 iron) tablet (Iron (ferrous sulfate)) magnesium 200 mg tablet 400 mg PO DAILY 10/27/23 10/27/23 10/26/23 sertraline 100 mg tablet (Zoloft) 100 mg PO DAILY 10/27/23 10/27/23 10/19/23 Active Medications Generic Name Dose Route Start Last Admin Trade Name Freq PRN Reason Stop Dose Admin Lactated Ringer's 1,000 mls @ 125 mls/hr 10/27/23 05:52 10/27/23 07:59 Lr IV 10/29/23 05:51 999 mls/hr .Q8H PRN Infusion L&D Protocol Protocol Levothyroxine Sodium 112 mcg 10/27/23 06:30 10/27/23 06:18 Levothyroxine Sodium 112 Mcg Tablet PO 11/26/23 06:29 [facility] Past Medical History Medical History Anxiety and depression Sabas's disease GERD (gastroesophageal reflux disease) -induced History of COVID-19 08/2020 Asthma Allergy induced/well controlled per patient, no inhalers PROM (premature rupture of membranes) 1st Cervical malignancy CIS 2012 > "resolved" History of chicken pox childhood Exercise / Class Metabolic Activity II 4-5 Yardwork/Stairs/Walk up hill Past Family History Family History Brother Heart valve disorder Denies family history of Ovarian cancer Prostate cancer Breast cancer Colorectal cancer Past Surgical History Surgical History H/O LEEP S/P cone biopsy of cervix cold knife cone of cervix 2012 for CIS [place] teeth removed 2002 H/O dilation and curettage 2014 H/O nasal septoplasty 2003 History of rhinoplasty 2018 Past Anesthesia History No Hx of Anesthesia Complications and No Family Hx of Anesthesia Complications History of PONV No Hx of PONV and No Hx of Motion Sickness Social History Smoking Status: Never smoker Do You Dip or Chew Tobacco: No Smoking End Date: Age 20s, "light use" Hx Alcohol Use: No Hx Substance Use: No substance use type: does not use Review of Systems denies fever/cough/ colds/ chest pain/ SOB/ MATTIE denies MATTIE Physical Exam Vital Signs Last Vital Signs Temp 36.6 C 10/27/23 07:05 Pulse 97 H 10/27/23 08:34 Resp 20 10/27/23 07:05 BP 151/89 H 10/27/23 08:33 Pulse Ox 99 10/27/23 08:34 ENMT Mouth: no TMJ abnormality and no dentition abnormality Thyromental Distance: > or= 3.5 Finger Breadths Mallampati Class: II Neck neck extension not limited Respiratory normal respiratory effort; no respiratory distress Auscultation: lungs clear to auscultation bilaterally Cardiovascular Rate/Rhythm: regular rate and regular rhythm Neurologic moves all extremities Psychiatric Orientation: alert and oriented x 3 Testing Laboratory Results 10/27/23 06:07 Blood Type O Positive 10/27/23 06:07 Antibody Screen NEGATIVE 10/27/23 06:07
--- NOTE | 2023-10-27 08:25 | Communication Note ---
Date of Service: October 27, 2023 Visited with patient, very pleased to be vertex and in labor / SROM! Planning epidural now. Will re-assess after comfortable. FHT has been reassuring. Mec present per report from out-going coverage. Will augment.
[2023-10-27] MEDS: fentaNYL citrate PF 100 MCG/2 ML VIAL ONE (08:29)
[2023-10-27] MEDS: BUPIVACAINE 0.25% PF 30 ML VIAL ONE (08:29)
[2023-10-27] MEDS: LIDOCAINE 2%/EPINEPHRINE 1:200,000 20 ML PF ONE (08:29)
[2023-10-27] MEDS: fentANYL 2 MCG/ML BUPIVacaine 0.125%-NSS 100ML BAG ONE (08:31)
[2023-10-27] MEDS ORDERED: ceFAZolin 330 MG/ML 1 GM VIAL ONE (13:09)
[2023-10-27] MEDS ORDERED: OXYTOCIN 10 UNITS/ML VIAL ONE (13:09)
[2023-10-27] MEDS ORDERED: MoRPHine SULFATE PF 1 MG/ML 10 ML AMP/VIAL ONE (13:09)
[2023-10-27] MEDS ORDERED: LIDOCAINE 2%/EPINEPHRINE 1:200,000 20 ML PF ONE (13:09)
[2023-10-27] MEDS ORDERED: LACTATED RINGER'S 500 ML IV PRN (13:26)
[2023-10-27] MEDS ORDERED: HYDROmorphone INJ 0.5 MG/0.5 ML SYR IV PRN (13:26)
[2023-10-27] MEDS ORDERED: NALOXONE HCL 0.08 MG in SYRINGE 1.8 ML IV PRN (13:26)
[2023-10-27] MEDS ORDERED: DC INTRASPINAL MORPHINE SCH (13:30)
[2023-10-27] MEDS ORDERED: NO NARCOTICS OR SEDATIVES SCH (13:30)
--- NOTE | 2023-10-27 13:49 | Post Operative Brief Note ---
PG Immediate Post Op with CF Date of Surgery October 27, 2023 Pre & Post Diagnosis Operation Date: 10/27/23 07:30 Pre-Op Diagnosis: Term Intolerance of Labor Post-Op Diagnosis: Term Intolerance of Labor I identified the patient and participated in the time-out.: Yes Procedure Operation Date: 10/27/23 07:30 Actual Procedures p Section (Delivery of Baby Through Abdominal Incision) delivery of live female child at 1305 - Nereida Araujo MD Surgeon Jose Mathur MD Press Assistant And Feeder RN/PGY1 Estimated Blood Loss 500 Findings Consistent with Post-Op Diagnosis Specimens Specimen Description: 1. Placenta, HOLD 2. Cord Blood 3. Cord Gases Drains Tello Catheter OB Procedure charges OB Charges [id number]
[2023-10-27 13:50] LABS: CO2 Cord Arterial Blood 57 mmHg (39.1-73.5); HCO3 Cord Arterial Blood 27 mmol/L (19.7-28.5); Oxygen Sat Cord Arterial Blood < 60.0 % (<60); PO2 Cord Arterial Blood < 20 mmHg (4.1-31.7); pH Cord Arterial Blood 7.28 (7.1-7.38)
[2023-10-27 13:53] LABS: Base Excess Cord Venous Blood -2.1 mEq/L (-7.7-1.9); Cord Venous Blood HCO3 24 mmol/L (18.4-26.8); Cord Venous Blood PCO2 43 mmHg (30.4-57.2); Cord Venous Blood PO2 33 mmHg (14.1-43.3); Cord Venous Blood pH 7.35 (7.20-7.44); O2 Saturation Cord Venous Bld 68.1 % (<68)
--- NOTE | 2023-10-27 13:57 | Operative Report ---
PG Post Operative Report Pre & Post Diagnosis Operation Date: 10/27/23 07:30 Pre-Op Diagnosis: Term Intolerance of Labor Post-Op Diagnosis: Term Intolerance of Labor I identified the patient and participated in the time-out.: Yes Procedure Operation Date: 10/27/23 07:30 Actual Procedures p Section (Delivery of Baby Through Abdominal Incision) delivery of live female child at 1305 - Nereida Araujo MD Surgeon Jose Mathur MD Housing Management Officer RN/PGY1 Estimated Blood Loss 500 Findings Consistent with Post-Op Diagnosis Specimens None Indications Prolonged deceleration noted lasting approximately 15 minutes. Heart rate was noted to have marked variability. Heart rate did return to normal however patient preferred to proceed with primary section as discussed with her during the prolonged deceleration. An urgent/emergent section was performed. Description of Procedure Patient was taken to the operating room and was proper identified. She was prepped and draped in in the normal sterile fashion with a Betadine splash. A preprocedural timeout was performed. A Pfannenstiel incision was made with a knife. This was carried down to the underlying fascia with the knife. The fascia was entered with a knife and bluntly dissected midline was then entered and placed on stretch to provide adequate room for delivery. Bladder blade was inserted and low transverse uterine incision was made with a knife. Uterine cavity was then entered bluntly and placed on stretch to provide adequate room for delivery. Head of the was delivered without difficulty followed by body and shoulders. Cord was double clamped and cut taken of the waiting nursery staff for evaluation. Cord blood and cord segment obtained. Attention was then turned delivery the placenta was delivered intact three- vessel cord gentle cord traction. Uterus was then exteriorized and several passes were made to remove any remaining membranes with a dry lap. Uterus was wrapped in a wet lap and the hysterotomy was reapproximated with 0 Vicryl continuous running lock stitch. Second imbricating of 0 Vicryl and continuous running stitch was performed. Excellent hemostasis noted. Posterior cul-de-sac cleaned of clots and debris's. Uterus returned maternal abdomen. Right left paracolic gutters cleaned of clots and debris's. Hysterotomy's were inspected and had noted hemostasis. Fascia subcutaneous and muscle layers were inspected noted to be hemostatic. Fascia was reapproximated with 0 Vicryl and continuous running stitch. Subcutaneous layer was reapproximated with 2-0 plain with continuous running stitch. Skin was reapproximated with 3-0 Vicryl continuous subcuticular stitch. Needle sponge and instrument counts were correct at the completion of the case. Both mother and stable in the immediate postdelivery period. I attest to the content of the Intraoperative Record and any orders documented therein. Any exceptions are noted below. OB Procedure charges OB Charges [id number]
[2023-10-27] MEDS ORDERED: LACTATED RINGER'S 1,000 ML IV SCH (14:05)
[2023-10-27] MEDS ORDERED: BENZOCAINE 20% SPRY 85 APPLN/85 GM CAN EXT PRN (14:05)
[2023-10-27] MEDS ORDERED: HYDROCORTISONE ACETATE 25 MG SUPP PR PRN (14:05)
[2023-10-27] MEDS ORDERED: MAGNESIUM HYDROXIDE SUSP 30 ML UDC PO PRN (14:05)
[2023-10-27] MEDS: AZITHROMYCIN 500 MG in DEXTROSE 5% 250 ML IV ONE (14:16)
[2023-10-27] MEDS: OXYTOCIN 20 UNITS/LR 1,002 ML IV SCH (14:19)
[2023-10-27] MEDS: SODIUM CHLORIDE 0.9% PF INJ 10 ML VIAL ONE (14:20)
[2023-10-27] MEDS: CITRIC ACID/SODIUM CITRATE 15 ML UDC ONE (14:20)
[2023-10-27] MEDS: ONDANSETRON INJ 2 MG/ML 2 ML VIAL IV PRN (14:34)
--- NOTE | 2023-10-27 15:01 | Anesthesia Procedure Note ---
Date of Service October 27, 2023 Anesthesia Post Epidural Note Vital Signs Vital Signs: Temp Pulse Resp BP Pulse Ox 36.8 C 45 L 20 117/73 96 10/27/23 12:04 10/27/23 14:58 10/27/23 14:45 10/27/23 14:58 10/27/23 14:56 Notes Mental Status: alert / awake / arousable and participated in evaluation Nausea / Vomiting: adequately controlled Pain: adequately controlled Airway Patency, RR, SpO2: stable & adequate BP & HR: stable & adequate Hydration State: stable & adequate Neuraxial Anesthesia: was administered and sensory block resolved Anesthetic Complications: no major complications apparent and Pt Satisfied with anesthetic care Epidural: Removed without complications and With tip intact
--- NOTE | 2023-10-27 15:01 | Anesthesiology Progress Note ---
Date of Service October 27, 2023 Anesthesia Post Procedure Vital Signs Vital Signs: Temp Pulse Resp BP Pulse Ox 10/27/23 14:58 45 L 117/73 10/27/23 14:56 72 96 10/27/23 14:51 71 96 10/27/23 14:48 64 131/65 10/27/23 14:46 66 95 10/27/23 14:45 20 10/27/23 14:44 62 137/68 10/27/23 14:41 63 96 10/27/23 14:40 65 93 10/27/23 14:36 69 96 10/27/23 14:31 79 96 10/27/23 14:30 82 125/69 10/27/23 14:26 82 95 10/27/23 14:25 82 93 10/27/23 14:21 77 97 10/27/23 14:16 80 99 10/27/23 14:15 75 125/76 10/27/23 14:11 76 99 10/27/23 14:08 85 94 10/27/23 14:06 74 98 10/27/23 14:01 97 10/27/23 14:01 84 10/27/23 14:01 73 105/64 10/27/23 13:59 89 90 10/27/23 13:56 100 H 97 10/27/23 13:51 92 H 98 10/27/23 13:46 88 118/63 98 10/27/23 12:54 92 H 100 10/27/23 12:49 84 100 10/27/23 12:46 70 137/64 10/27/23 12:44 70 100 10/27/23 12:41 60 139/79 10/27/23 12:39 75 94 10/27/23 12:34 70 98 10/27/23 12:29 64 98 10/27/23 12:25 79 107/68 10/27/23 12:24 69 98 10/27/23 12:19 67 97 10/27/23 12:14 71 98 10/27/23 12:13 94 H 91 10/27/23 12:11 68 106/55 L 10/27/23 12:09 75 98 10/27/23 12:04 36.8 C 16 10/27/23 12:04 63 98 10/27/23 11:59 77 96 10/27/23 11:56 66 110/56 L 10/27/23 11:54 63 96 10/27/23 11:49 64 97 10/27/23 11:44 69 97 10/27/23 11:39 74 98 10/27/23 11:34 82 99 10/27/23 11:29 71 97 10/27/23 11:26 62 18 109/59 L 10/27/23 11:24 67 97 10/27/23 11:19 69 97 10/27/23 11:14 65 99 10/27/23 11:10 67 116/64 10/27/23 11:09 65 99 10/27/23 11:04 75 99 10/27/23 10:59 67 100 10/27/23 10:55 64 114/63 10/27/23 10:54 67 99 10/27/23 10:49 67 100 10/27/23 10:44 66 100 10/27/23 10:40 36.7 C 71 20 116/61 10/27/23 10:39 77 100 10/27/23 10:34 68 100 10/27/23 10:29 71 100 10/27/23 10:26 66 127/69 10/27/23 10:24 65 100 10/27/23 10:19 70 97 10/27/23 10:14 76 97 10/27/23 10:10 67 20 131/68 10/27/23 10:09 67 100 10/27/23 10:04 74 99 10/27/23 09:59 72 100 10/27/23 09:54 63 100 10/27/23 09:49 68 100 10/27/23 09:47 63 94 10/27/23 09:44 70 99 10/27/23 09:39 71 99 10/27/23 09:34 94 10/27/23 09:34 74 10/27/23 09:34 73 98 10/27/23 09:29 71 100 10/27/23 09:24 65 119/73 98 10/27/23 09:21 67 93 10/27/23 09:19 75 98 10/27/23 09:14 96 H 98 10/27/23 09:11 80 95/53 L 10/27/23 09:09 83 97 10/27/23 09:04 72 97 10/27/23 08:59 76 96 10/27/23 08:57 85 88/52 L 10/27/23 08:54 91 H 99 10/27/23 08:53 36.7 C 88 20 107/58 L 10/27/23 08:51 94 H 109/55 L 10/27/23 08:49 80 117/65 99 10/27/23 08:47 90 102/54 L 10/27/23 08:45 94 H 96/55 L 10/27/23 08:44 85 98 10/27/23 08:43 83 112/58 L 10/27/23 08:41 78 119/65 10/27/23 08:39 80 118/67 98 10/27/23 08:35 86 163/89 H 10/27/23 08:34 97 H 99 10/27/23 08:33 84 151/89 H 10/27/23 08:31 86 149/87 H 10/27/23 08:29 93 H 154/89 H 99 10/27/23 08:27 83 156/95 H 10/27/23 08:25 88 151/92 H 10/27/23 08:24 86 99 10/27/23 08:23 90 152/90 H 10/27/23 08:19 90 156/102 H 99 10/27/23 07:06 81 140/88 10/27/23 07:05 20 10/27/23 07:05 36.6 C 20 10/27/23 06:02 36.8 C 18 10/27/23 05:33 75 132/80 Transfer of Care Handoff Completed per policy Notes Mental Status: alert / awake / arousable and participated in evaluation Patient Amnestic to Procedure: Yes Nausea / Vomiting: adequately controlled Pain: adequately controlled Airway Patency, RR, SpO2: stable & adequate BP & HR: stable & adequate Hydration State: stable & adequate Anesthetic Complications: no major complications apparent and Pt Satisfied with anesthetic care
[2023-10-27] MEDS: DIPHTHER/TETAN/PERTUS Vaccine (Tdap, Adol/Adult) 0.5mL IM ONE (15:22)
[2023-10-27] MEDS: ePHEDrine sulfate 50 MG/ML AMP ONE (15:22)
[2023-10-27] MEDS: ONDANSETRON INJ 2 MG/ML 2 ML VIAL ONE (15:22)
[2023-10-27] MEDS: MoRPHine SULFATE PF 1 MG/ML 10 ML AMP/VIAL EPI ONE (15:23)
[2023-10-27] MEDS: SODIUM CHLORIDE 0.9% 1,000 ML IV SCH (15:24)
[2023-10-27] MEDS: KETOROLAC 30 MG/ML VIAL IV PRN (15:55)
[2023-10-27] MEDS: SIMETHICONE 80 MG CHEW PO SCH (17:42)
[2023-10-27] MEDS: MoRPHine SULFATE 2 MG/ML CARP IV PRN (17:43)
[2023-10-27] MEDS: DOCUSATE SODIUM 100 MG CAP PO SCH (21:45)
[2023-10-27] MEDS: FAMOTIDINE 20 MG TAB PO SCH (21:47)
[2023-10-27] MEDS: PRENATAL VITAMIN 1 TAB PO SCH (21:50)
[2023-10-27] MEDS: SERTRALINE HCL 100 MG TABLET PO SCH (22:09)
[2023-10-28 06:38] LABS: Basophils # (auto) 0.01 K/uL (0.00-0.20); Basophils % (auto) 0.1 %; Eosinophils # (auto) 0.04 K/uL (0.00-0.50); Eosinophils % (auto) 0.4 %; Hematocrit (blood only) 31.9 % (37.0-47.0); Immature Granulocytes # (auto) 0.04 K/uL (0.01-0.20); Immature Granulocytes % (auto) 0.4 %; Lymphocytes # (auto) 1.31 K/uL (1.20-3.40); Lymphocytes % (auto) 14.6 %; Mean Corpuscular Hemoglobin 31.5 pg (25.0-34.0); Mean Corpuscular Hgb Conc 34.5 g/dL (32.0-36.0); Mean Corpuscular Volume 91.4 fL (80.0-100.0); Mean Platelet Volume 11.4 fL (9.4-12.4); Monocytes # (auto) 0.61 K/uL (0.11-0.59); Monocytes % (auto) 6.8 %; Neutrophils # (auto) 6.96 K/uL (1.40-6.50); Neutrophils % (auto) 77.7 %; Platelet Count 141 K/uL (130-400); RDW Standard Deviation 42.9 fL (36.4-46.3); Red Blood Count 3.49 M/uL (4.20-5.40); White Blood Count 8.97 K/ul (4.8-10.8)
--- NOTE | 2023-10-28 06:42 | Obstetrical Progress Note ---
Date of Service October 28, 2023 Assessment & Plan (1) S/P : Plan: Doing well this AM Encourage ambulation Admission and Anticipated Discharge Date Admission Date: October 27, 2023 Supervising Physician Co-Signing Physician Notes Patient seen with resident and agree with the above findings and plan. Day 1 status post primary . Patient doing well and will continue with routine care Subjective 33 yo post op day 1 s/p Ambulation: ambulating normally Voiding: no voiding problems Passing Gas:: Yes Diet Tolerance:: regular diet Lochia:: Small Feeding Type:: breast feeding Current Pain Level: minimal Resting comfortably this AM in NAD. Denies DUMONT, CP, SOB, N/V/D, LE pain/swelling. Review of Systems Review of Systems: reviewed, per HPI Physical Exam Physical Exam: General: patient resting comfortably, NAD, non-toxic in appearance, answers questions appropriately. Skin: warm, dry, intact HEENT: NC/AT, anicteric sclera, conjunctiva without injection, moist mucus membranes. Heart: +S1/S2, regular, no m/r/g Lungs: equal air entry bilaterally, no rales/rhonchi/wheezes Abd: +BS, soft, NT/ND, uterine fundus firm at umbilicus, caesarean incision C/D/I. Ext: warm, no clubbing/cyanosis or edema, Deb's neg. Neuro: nonfocal, speech intact, no facial droop, moving all extremities on command. Results & Data Vital Signs (Past 12 Hours) Vital Signs Temp Pulse Resp BP Pulse Ox O2 Del Method 10/28/23 04:30 36.7 C 79 16 128/86 100 Room Air 10/28/23 03:30 17 96 10/28/23 02:30 16 97 10/28/23 01:30 16 97 10/28/23 00:30 16 97 10/28/23 00:30 16 97 10/28/23 00:30 36.7 C 80 16 130/78 97 Room Air 10/27/23 23:30 16 98 10/27/23 22:30 16 98 10/27/23 21:30 15 97 10/27/23 20:30 16 97 10/27/23 19:30 17 97 10/27/23 19:30 36.7 C 67 17 127/78 97 Room Air Resident Activity Tracking Resident Involvement: Resident Care Provided Care Provided: Adult Hospital Medicine
[2023-10-28] MEDS ORDERED: PROMETHAZINE HCL 25 MG in SODIUM CHLORIDE 0.9% 50 ML IV PRN (07:27)
[2023-10-28] MEDS ORDERED: diphenhydrAMINE 50 MG/ML VIAL IV PRN (07:27)
[2023-10-28] MEDS ORDERED: diphenhydrAMINE Capsule 25 MG CAP PO PRN (07:27)
[2023-10-28] MEDS: oxyCODONE/ACETAMINOPHEN 5mg/325mg TAB PO PRN (08:24)
[2023-10-28] MEDS: FERROUS SULFATE 325 MG TAB PO SCH (08:24)
[2023-10-28] MEDS: IBUPROFEN 600 MG TAB PO PRN (12:22)
[2023-10-28] MEDS: bisacodyL 5 MG TABEC PO SCH (19:57)
[2023-10-29] MEDS: ONDANSETRON 4 MG OD TAB PO PRN (01:14)
[2023-10-29 06:43] LABS: Hematocrit (blood only) 31.7 % (37.0-47.0); Hemoglobin 10.8 g/dl (12.0-16.0)
--- NOTE | 2023-10-29 07:02 | Obstetrical Progress Note ---
Date of Service October 29, 2023 Assessment & Plan (1) S/P : Plan: Doing well this AM Encourage ambulation Pain control Plan for dc today Admission and Anticipated Discharge Date Admission Date: October 27, 2023 Supervising Physician Co-Signing Physician Notes Resident Physician Supervision Note: I was present with [Name of resident] during the history and exam. I discussed the case with the resident and agree with the findings and plan as documented in the note. Any exceptions or clarifications are listed here: [None] Documented By: Kunal Nguyen MD, FACOG Subjective 33 yo post op day 2 s/p Ambulation: ambulating normally Voiding: no voiding problems Passing Gas:: Yes Diet Tolerance:: regular diet Lochia:: Small Feeding Type:: breast feeding Current Pain Level: moderate Resting comfortably this AM in NAD. Denies DUMONT, CP, SOB, N/V/D, LE pain/swelling. Desires dc today Review of Systems Review of Systems: reviewed, per HPI Physical Exam Physical Exam: General: patient resting comfortably, NAD, non-toxic in appearance, answers questions appropriately. Skin: warm, dry, intact HEENT: NC/AT, anicteric sclera, conjunctiva without injection, moist mucus membranes. Heart: +S1/S2, regular, no m/r/g Lungs: equal air entry bilaterally, no rales/rhonchi/wheezes Abd: +BS, soft, NT/ND, uterine fundus firm at umbilicus, caesarean incision C/D/I. Ext: warm, no clubbing/cyanosis or edema, Deb's neg. Neuro: nonfocal, speech intact, no facial droop, moving all extremities on command. Results & Data Vital Signs (Past 12 Hours) Vital Signs Temp Pulse Resp BP Pulse Ox O2 Del Method 10/29/23 01:00 36.5 C 75 17 147/84 H 99 Room Air 10/28/23 20:00 Room Air 10/28/23 20:00 36.4 C L 83 16 125/79 98 Room Air Resident Activity Tracking Resident Involvement: Resident Care Provided Care Provided: Adult Hospital Medicine
[2023-10-29] MEDS: SENNA 8.6 MG TAB PO PRN (09:00)
[2023-10-29] MEDS ORDERED: bisacodyL 10 MG SUPP PR PRN (13:34)
== END 2023-10-29 13:30 | disposition home or self-care (01) | DRG 788 ==
LOC: 4S1 05:18 → EDSTATUS 07:30 → 4E2 17:12
DX: Z87.891 Personal history of nicotine dependence; Z88.8 Allergy status to other drugs, medicaments and biological substances; Z37.0 Single live birth; Z79.890 Hormone replacement therapy; Z87.59 Personal history of other complications of pregnancy, childbirth and the puerperium; Z88.0 Allergy status to penicillin; Z3A.39 39 weeks gestation of pregnancy; Z86.16 Personal history of COVID-19; Z85.41 Personal history of malignant neoplasm of cervix uteri; Z79.899 Other long term (current) drug therapy; O76 Abnormality in fetal heart rate and rhythm complicating labor and delivery